=== PATIENT | female | born 2000 | race Caucasian/White ===

== ENCOUNTER → 2021-06-03 | Outpatient (CLI) | payer OTHER, SELFPAY ==
[2020-12-26 14:44] VITALS: BMI 41.1
--- NOTE | 2021-06-02 23:56 | HP.PCM_ITS ---
History and Physical Date of Admission: 06/03/21 HISTORY OF PRESENT ILLNESS 20 year old woman presents with complaints of bilateral macromastia as well as associated painful symptomatology of neck pain, thoracic back pain, bilateral shoulder pain from shoulder grooving from the weight of her breasts on her bra straps, and inframammary intertrigo for which she uses powders and deodorant for relief. She denies any trauma to her breasts. Denies any nipple discharge. She likes to jog but finds it difficult due to the pain from her large breasts. She presents at this time A PREOP VISIT TO ANSWER ANY LAST MINUTE QUESTIONS PRIOR TO SURGERY, AND TO SIGN THE OFFICE CONSENT. HER BILATERAL BREAST REDUCTION SURGERY IS SCHEDULED FOR 06/03/21. PAST MEDICAL HISTORY Chronic neck pain Chronic thoracic back pain Intertrigo Macromastia Shoulder pain PAST SURGICAL HISTORY History of adenoidectomy History of tonsillectomy [place] teeth extracted ALLERGIES No Known Allergies MEDICATIONS Valium SOCIAL HISTORY Smoking Status: Never smoker alcohol intake: never substance use type: does not use REVIEW OF SYSTEMS General - Denies fever and weight loss and fatigue. Eyes - Denies cataracts and glaucoma. ENT - Denies nasal congestion and sore throat. Endocrine - Has excessive thirst and urination. Skin - Denies suspicious lesions and skin cancer. Has inframammary intertrigo for which she uses powders and deodorant for relief. Musculoskeletal - Denies joint pain, joint stiffness, weakness of muscles and joints, and arthritis. Has neck pain and back pain. Her neck and back pain involve cervical and thoracic area. Has bilateral shoulder pain from shoulder grooving from the weight of her breasts on her bra straps. Neuro - Has headaches. Has lightheadedness. Cardiovascular - Has chest pain, fatigue, and lightheadedness. Denies shortness of breath with exertion. Psych - Denies anxiety and depression. Respiratory - Denies shortness of breath and chronic cough. Gastrointestinal - Denies nausea, vomiting, and constipation and diarrhea. Hematologic - Denies abnormal bruising and bleeding. Genitourinary - Denies hematuria and urinary frequency. PHYSICAL EXAMINATION General - Alert and oriented. Patient's bra size is 44 GG. HEENT - PERRL. EOMI. Throat is clear. Neck - Supple. No bony tenderness. There is some pericervical soft tissue tenderness. Lungs- Clear to auscultation. Heart - Regular rate and rhythm. Breasts - Patient has bilateral macromastia. No breast masses palpable. No axillary adenopathy noted. Distance from midclavicular line on the left to the nipple is 41 cm and from the nipple to the inframammary fold is 13 cm. Distance from midclavicular line on the right to the nipple is 41 cm and from nipple to the inframammary fold is 14 cm. Nipple areolar complex diameter is 8 cm bilaterally. No active inframammary intertrigo noted at this time. Abdomen - Soft and non distended. Back - No bony tenderness noted. There is perivertebral soft tissue tenderness in the upper thoracic area. Extremities - FROM. No axillary adenopathy. Radial pulses are palpable. There is some bilateral shoulder tenderness with shoulder grooving from the weight of her breasts on her bra straps. Neuro - CN II-XII grossly intact. Psych - Normal and mood and affect. ASSESSMENT 1. Bilateral macromastia. 2. Neck pain. 3. Thoracic back pain. 4. Bilateral shoulder pain from shoulder grooving from the weight of the breasts on her bra straps. 5. Inframammary intertrigo. PLAN Discussed with the patient the procedure of breast reduction mammoplasty. I feel this procedure would be beneficial in this patient as it would help relieve her painful symptomatology. Because of her young age, she does not need a screening mammogram before surgery. Postoperatively, she would get a breast reduction baseline mammogram at some point. I would remove approximately 700 g of breast tissue per side. We will send the tissue to pathology for analysis to rule out carcinoma. Discussed with patient the extent of scarring for this procedure. The biggest risk for wound healing problems is the T-zone area. Usually wound care and sometimes antibiotics are necessary for healing in this area. She would have drains in for a few days depending on the amount of tissue that is removed. She will be on antibiotics until the drains are removed. For this patient because of her large size, the final breast size ranges from a C cup to a low D cup. Patient voices understanding. Surgery will be done under general anesthesia with a surgical observation overnight stay in the hospital. Patient was informed of the risks and complications of the procedure including alternatives to surgery. These were discussed with her personally. She voices understanding and wishes to proceed. Some of the risks and complications were included in a form from the [employer]. HER QUESTIONS REGARDING THE SURGERY WERE ANSWERED PERSONALLY AND TO HER SATISFACTION. Discussed with the patient that sometimes it is difficult to breast feed after a breast reduction surgery. She states if she has children in the future and if she has trouble with breast feeding, then she will bottle feed her baby. Also because of her age, she may still be developing her breasts. After her breast reduction surgery, if she is still developing she may increase her breast size about half a cup size on average. She understands that possibility and wishes to proceed. We discussed the current risks associated with COVID-19. While it is understood that there is a community spread of COVID-19, the risk of bravo COVID-19 while at [facility] ([facility]) is very low; however, the risk cannot be completely mitigated because of the community spread of the disease. We discussed in detail the risk of exposure to and/or potential harm posed by the COVID-19 virus with having a surgery/procedure at this time versus the risk of delaying the surgery/procedure. It is not possible to know either the risk of delaying the surgery or procedure or chance of getting an infection with perfect accuracy, but a joint decision was made to proceed at this time with the scheduled surgery/procedure as indicated on the consent form. Patient was notified that we will need to comply with any screening or testing [facility] wishes to perform or that surgery may be delayed for any positive results. Procedure Criteria Procedure Type:?Elective COVID Risk Discussion: The surgeon/proceduralist and patient have discussed in detail the risk of exposure to and/or potential harm posed by the COVID-19 virus with having a surgery/procedure at this time versus the risk of delaying the surgery/procedure.? It is not possible to know either the risk of delaying the surgery or procedure or chance of getting an infection with perfect accuracy, but a joint decision was made between the patient and the surgeon/proceduralist to proceed at this time with the scheduled surgery/procedure as indicated on the consent form.
[2021-06-03 07:50] LABS: Internal QC Validated? YES +Cl - CLEAR BKGD; Pregnancy, Urine Negative Negative
[2021-06-03 07:51] VITALS: BP 111/66; PULSE 94; RESP 17; TEMP 36.6; O2SAT 100; BMI 39.7
[2021-06-03 08:10] LABS: Bedside Glucose 76 mg/dL (70-110)
--- NOTE | 2021-06-03 23:40 | PCM.PN.BLA ---
Progress Note Patient was scheduled for bilateral breast reduction mammaplasty surgery today. It was cancelled because of COVID issues. Because of the uncertainty of COVID since the pandemic started, hospitals are filling up with COVID patients as well as patients with other ailments. There has been a severe bed shortage not only at [facility] but also in [facility] and surrounding communities. A decision was made that elective surgeries that were planning on an overnight stay in the hospital are cancelled all of this week. Will reassess later in the week for next week. This uncertainty will occur each week until things settle down. As of right now elective surgeries that are outpatient can still be done. However, if the trend continues, then even elective surgeries that are outpatient may be cancelled as was done when the pandemic first struck in July,.
== END | disposition home or self-care (01) ==
LOC: PAT 09-05 14:37
PROVIDERS: Anesthesiology; PCP Pediatrics; Referring Provider Surgery; Visit Provider Surgery
DX: Z01.818 Encounter for other preprocedural examination (principal)
CPT/HCPCS: 81025; 82962; J7120